=== PATIENT | female | born 1975 | race Caucasian/White ===

== ENCOUNTER → 2022-12-13 08:22 | Outpatient (BNVA) | payer SELFPAY | PROVIDERS: PCP Nurse Practitioner; Visit Provider Nurse Practitioner | DX: E11.9 Type 2 diabetes mellitus without complications (principal); Z79.899 Other long term (current) drug therapy | CPT/HCPCS: 80053; 80061; 82306; 83036; 83735; 84443; 85025 ==

== ENCOUNTER → 2023-02-20 09:45 | Outpatient (BNVA) | payer SELFPAY | PROVIDERS: PCP Nurse Practitioner; Visit Provider Nurse Practitioner | DX: R25.2 Cramp and spasm (principal); D25.9 Leiomyoma of uterus, unspecified; M25.512 Pain in left shoulder; M54.9 Dorsalgia, unspecified; G89.29 Other chronic pain; M54.2 Cervicalgia; R91.1 Solitary pulmonary nodule | CPT/HCPCS: 73030; 80053; 83735; 84443 ==

== ENCOUNTER 2023-06-15 10:54 | Emergency (ER) | payer SELFPAY ==
[2023-06-15 11:01] VITALS: BP 123/88; PULSE 114; RESP 18; TEMP 36.7; O2SAT 99; BMI 43.7
--- NOTE | 2023-06-15 11:28 | W.ED.EXTPRO ---
HPI - Extremity Problem General: Chief complaint: Extremity Injury, Upper Stated complaint: left shoulder injury Time Seen by Provider: 06/15/23 10:57 History of Present Illness: Mikala Rodriguez is a 47-year-old [id number] female that presents to the emergency department with complaints of left shoulder pain. Onset of symptoms she reports as a 1 month ago but she has x-rays back in January of the left shoulder. Patient states that she injured the shoulder when she was lifting heavy tree. Patient is neurovascularly intact and has no wounds. Patient has been working with her primary care who is ordered an MR of the cervical spine as well as the left shoulder but patient has not followed through due to financial burden of MR imaging. Patient's history includes diabetes, hypertension, cardiovascular disease, chronic kidney disease Associated symptoms: Deny chest pain, fever(s) or rash Review of Systems General: Reports: 10 or more systems reviewed and unremarkable except in HPI and below Const: Denies: fever(s), chills, change in appetite, change in weight, fatigue or malaise Eyes: Denies: change in vision, eye discomfort, eye discharge or eye redness ENMT: Denies: throat pain, enlarged tonsils, odynophagia, hoarseness, ear or mastoid pain, ear discharge, change in hearing, tinnitus, nasal discharge, nasal congestion, post nasal drip or sinus pain Card: Denies: chest pain, palpitations, irregular heart rhythm, edema, dyspnea on exertion, orthopnea or leg pain with exertion Resp: Denies: dyspnea, productive cough, non-productive cough, wheezing, stridor or chest congestion GI: Denies: abdominal pain, nausea, vomiting, dysphagia, diarrhea, constipation, bloating, GI cramping or hematochezia : Denies: flank pain, difficulty voiding, dysuria, urinary frequency, urinary urgency, urinary hesitancy, oliguria or hematuria Musc: Denies: neck pain, back pain, extremity pain, joint pain, joint swelling, joint redness, joint warmth or muscle weakness Skin/Breast: Denies: rash, pruritus, erythema, photosensitivity or new lesions Neuro: Denies: headache(s), numbness in extremities, weakness in extremities, sensory changes, lack of coordination, difficulty walking, frequent falls, dizziness, confusion, Slurred speech present, difficulty communicating thoughts, seizure-like activity or involuntary movements Endo: Denies: polyuria, polydipsia or tired all the time Sidney/Lymph: Denies: easy bruising or easy bleeding Physical Exam Const: COMMON NORMALS: no acute distress, patient oriented x3 and alert GENERAL APPEARANCE: cooperative ORIENTATION/CONSCIOUSNESS: Yes awake, Yes oriented to person, Yes oriented to place and Yes oriented to time HENMT: COMMON NORMALS: normocephalic and atraumatic HEAD & SCALP: normocephalic and atraumatic FACE & SINUS: normal facial exam MOUTH: Normal oral and palatal mucosa present THROAT: posterior oropharynx normal Eye: COMMON NORMALS: Equal, round and reactive pupils present, EOMs intact bilaterally, conjunctivae normal and no scleral icterus GENERAL EYE: appearance normal, both eyes and all related structures ALIGNMENT: Yes alignment normal PERIORBITAL: periorbital findings normal CONJUNCTIVA: Yes conjunctivae normal PUPIL: Yes Equal, round and reactive pupils present Neck/C-Spine: COMMON NORMALS: full ROM GENERAL: Yes normal visual inspection Lymph: LYMPHATIC: no lymphadenopathy noted Chest: COMMONS NORMALS: normal inspection of the chest Breast/axilla inspection: Yes no chest deformity, asymmetry, normal contours, no nodules, masses, tenderness Resp: COMMON NORMALS: normal respiratory effort, No retractions, No use of accessory muscles and clear to auscultation bilaterally EFFORT & INSPECTION: Yes able to speak in complete sentences and Yes symmetric chest movement AUSCULTATION: clear to auscultation bilaterally Cardio: COMMON NORMALS: regular rate, regular rhythm and Peripheral pulses 2+ throughout RATE: regular rate RHYTHM: regular rhythm PERIPHERAL PULSES: Peripheral pulses 2+ throughout GI: COMMON NORMALS: Normal to inspection, nondistended, normoactive bowel sounds present, Soft to palpation, non-tender and No hepatosplenomegaly present INSPECTION: Yes normal to inspection AUSCULTATION: Yes normoactive bowel sounds PALPATION: Yes Soft to palpation and Yes No hepatosplenomegaly present RECTAL EXAM: deferred Extremity: COMMON NORMALS: normal to inspection NARRATIVE EXTREMITY EXAM: Left upper extremity: Skin is clean dry intact Tenderness to palpation over the left trapezius, anterior and posterior shoulder, deltoid. Patient reports pain radiates into the bicep and deltoid and intermittently into the tricep. Patient has limited range of motion of her shoulder due to pain She has about 90 degrees of forward flexion, 15 degrees of external rotation, 15 degrees of abduction, and refuses internal rotation exam Patient has full active elbow range of motion She is able to extend her wrist She is able to give a thumbs up, make an okay sign, cross fingers, abduct fingers and make a fist Sensations intact light touch at axillary, radial, median, ulnar nerve distribution Radial pulses palpable and cap refills less than 3 seconds Neuro: COMMON NORMALS: patient oriented x3 SENSORIUM/ORIENTATION: Yes alert, Yes oriented to person, Yes oriented to place and Yes oriented to time CRANIAL NERVES: Yes CN normal except as noted Psych: COMMON NORMALS: mental status grossly normal, Normal thought process present, cooperative, activity/motor behavior normal, denies homicidal ideation and denies suicidal ideation THOUGHT PROCESS: Normal thought process present Skin: COMMON NORMALS: no rashes or lesions noted, no wounds and turgor normal GENERAL SKIN EXAM: no rashes or lesions noted and turgor normal Course Vital Signs: Vital signs: Vital Signs Temperature 98.1 F 06/15/23 11:01 Pulse Rate 114 H 06/15/23 11:01 Respiratory Rate 18 06/15/23 11:01 Blood Pressure 123/88 06/15/23 11:01 Pulse Oximetry 99 06/15/23 11:01 Oxygen Delivery Me thod Room Air 06/15/23 11:01 MDM - Extremity (Nontraumatic) Medical Decision Making Patient is in the emergency department for complaints of left shoulder pain. She has undergone XR imaging earlier in the summer and has been evaluated by primary care. There is been referral to an orthopedic surgeon but she does not have an appointment until July. Patient states she has undergone further diagnostic evaluation up in [place] but we do not have those images. She has seen her primary care and MR imaging of the cervical spine and left shoulder have been ordered but patient has failed to complete due to the financial burden. Patient has been taking naproxen and has a prescription for Celebrex. She states that medications he is taking offer her no relief. She states her pain is only with movement She has trialed Flexeril as well that does not offer any pain relief. Patient and I talked about diagnostic evaluation here in the emergency department. I am able to get a CT or XR but really she needs an MRI. She has declined CT and XR at this time. Offered her pain relief which included nonsteroidal anti-inflammatories and steroids. Initially patient was declining either but agreed to Norflex and Decadron. Patient was given contact information for a walk-in orthopedic clinic. Also given her case management Referral for orthopedic referral. No radiology studies performed this visit Discharge Plan Discharge Patient Disposition: Home Clinical Impression: Left shoulder pain Condition: Stable Prescriptions: New tizanidine 4 mg capsule 4 mg PO Q8H PRN (Reason: muscle spasticity) Qty: 20 0RF No Action amlodipine 5 mg tablet 5 mg PO DAILY Qty: 90 1RF celecoxib [Celebrex] 200 mg capsule 200 mg PO BID Qty: 60 6RF diclofenac sodium [Voltaren Arthritis Pain] 1 % gel 2 g topical QID Qty: 100 3RF Rx Instructions: apply to area of pain lidocaine [Aspercreme (lidocaine)] 4 % adhesive patch,medicated 1 patch topical DAILY PRN (Reason: pain) Qty: 30 3RF estradiol 1 mg tablet 1 mg PO DAILY Rx Instructions: off 1 week; repeat cycle medroxyprogesterone [Provera] 2.5 mg tablet 2.5 mg PO DAILY Novolin 70-30 FlexPen U-100 100 unit/mL (70-30) insulin pen 20 unit SUBCUT BID cholecalciferol (vitamin D3) 1,250 mcg (50,000 unit) capsule PO vitamin B complex [B Complex-Vitamin B12] Tablet 1 tab PO DAILY furosemide [Lasix] 40 mg tablet 40 mg PO DAILY Qty: 90 1RF gabapentin 400 mg capsule 400 mg PO .every 6 hours Qty: 360 1RF losartan-hydrochlorothiazide 100-12.5 mg tablet 1 tab PO DAILY Qty: 90 1RF metoprolol succinate 50 mg tablet extended release 24 hr 50 mg PO DAILY Qty: 90 1RF omeprazole 20 mg capsule,delayed release(DR/EC) 20 mg PO DAILY Qty: 90 1RF albuterol sulfate 90 mcg/actuation HFA aerosol inhaler 2 puff inhalation Q4H PRN (Reason: shortness of breath or wheezing) Qty: 8.5 3RF nitrofurantoin monohyd/m-cryst [Macrobid] 100 mg capsule 100 mg PO Q12H 5 Days Qty: 10 0RF Rx Instructions: must administer with a meal/food potassium chloride 20 mEq tablet,ER particles/crystals 20 meq PO DAILY Qty: 90 1RF hydroxyzine HCl 25 mg tablet See Rx Instructions .ROUTE .COMPLEX Qty: 30 0RF Dose Instruction: TAKE 1 TABLET BY MOUTH AT BEDTIME NEEDED FOR INSOMNIA Rx Instructions: TAKE 1 TABLET BY MOUTH AT BEDTIME NEEDED FOR INSOMNIA escitalopram oxalate 10 mg tablet See Rx Instructions .ROUTE .COMPLEX Qty: 30 0RF Dose Instruction: Take 1 tablet by mouth once daily Rx Instructions: Take 1 tablet by mouth once daily atorvastatin 40 mg tablet 40 mg PO DAILY Qty: 90 1RF metformin 500 mg tablet 1,000 mg PO BID 90 Days Qty: 360 1RF tramadol 50 mg tablet 50 mg PO TID PRN (Reason: pain) Qty: 30 3RF cyclobenzaprine 10 mg tablet 10 mg PO DAILY PRN (Reason: muscle spasm) Qty: 30 3RF Discharge Orders: Discharge ED (Routine); Ordered 06/15/23 Ordered By: Julio Suh Discharge Diet: Advance as tolerated Discharge Activity: Resume usual activity Patient Instructions: Shoulder Pain (ED), Pain Management Activity Restrictions/Additional Instructions: Tylenol with arthritis, ice, gentle range of motion if possible Muscle relaxers for the muscle spasms. Follow-up with your primary care doctor. I have sent a referral for orthopedic follow-up. If you so desire you can follow-up with the walk-in clinic. Dr. Hamilton was is a sports medicine doctor in [place]. His address is [address] [place] [address] on the second floor. His phone number is [phone]. You can walk-in without appointment typically Friday through Friday. Call the office to confirm hours of walk-in availability. Please return to the emergency department for new concerning or worsening symptoms Coding Level of Care Code ED Scientific Photographer for Stanton Batista
[2023-06-15] MEDS: dexamethasone 10 mg/mL INJ IM (11:30)
[2023-06-15] MEDS: orphenadrine 30 mg/mL Inj 2 mL 60 MG IM (11:31)
== END 2023-06-15 11:50 | disposition home or self-care (01) ==
PROVIDERS: Emergency Provider Nurse Practitioner
DX: M25.512 Pain in left shoulder (principal); Z79.84 Long term (current) use of oral hypoglycemic drugs; Z79.4 Long term (current) use of insulin
CPT/HCPCS: 96372; 99284; J1100; J2360

== ENCOUNTER → 2023-11-11 10:41 | Outpatient (BNVA) | payer SELFPAY | PROVIDERS: PCP Nurse Practitioner Family; Visit Provider Nurse Practitioner Family | DX: S92.352A Displaced fracture of fifth metatarsal bone, left foot, initial encounter for closed fracture (principal); S93.402A Sprain of unspecified ligament of left ankle, initial encounter; X58.XXXA Exposure to other specified factors, initial encounter | CPT/HCPCS: 73610; 73630 ==

== ENCOUNTER 2023-12-09 14:58 | Observation (INO) | payer SELFPAY ==
[2023-12-09] VITALS (14 sets, daily range): BP systolic 108–153; BP diastolic 69–94; PULSE 88–108; RESP 16–22; TEMP 36.7–37.1; O2SAT 92–97; BMI 42.9
--- NOTE | 2023-12-09 15:00 | XRR_ITS ---
PROCEDURE INFORMATION: Exam: XR Chest Exam date and time: 12/09/2023 3:24 PM Age: 48 years old Clinical indication: Shortness of breath; Additional info: SOB TECHNIQUE: Imaging protocol: Radiologic exam of the chest. Views: 1 view. COMPARISON: CR XR shoulder LT min 2V* [id number] 02/20/2023 10:42 AM FINDINGS: Lungs: Unremarkable. No consolidation. Pleural spaces: Unremarkable. No pleural effusion. No pneumothorax. Heart/Mediastinum: Unremarkable. No cardiomegaly. Bones/joints: Unremarkable. XR/XR chest 1V portable [id number] IMPRESSION: No acute findings.
--- NOTE | 2023-12-09 15:00 | ECG_ITS ---
[facility] Test Date: 2023-12-09 Pat Name: Elysia Rodriguez Department: Room: Gender: Female Banking Specialist: : 1975 Requested By: Dillan Paez Order Number: [id number] Rudy MD: John Ingram M.D. Measurements Intervals [place] Rate: 101 P: 53 [place]: 179 QRS: -2 QRSD: 83 T: 47 QT: 345 QTc: 449 Interpretive Statements SINUS TACHYCARDIA POSSIBLE LEFT ATRIAL ENLARGEMENT [-0.1mV P-WAVE IN V1/V2] ABNORMAL RHYTHM ECG No previous ECG available for comparison Electronically Signed On 12-09-2023 21:23:36 CDT by John Ingram M.D. [id number]
--- NOTE | 2023-12-09 15:29 | ED_ITS ---
HPI - General Adult 2 General: Chief complaint: General Medical Stated complaint: yara, abnormal labs, sob Time Seen by Provider: 12/09/23 15:22 Source: patient Mode of arrival: ambulatory Limitations: no limitations History of Present Illness: 48-year-old female who states that she i s exposed to flu a week ago states since then she has been having cough congestion fever states it has been worsening send her PCP did start her on steroids yesterday and now her blood sugars have been running high. She denies any vomiting or diarrhea. She states that her cough is nonproductive but anytime she lays down she feels like she is drowning she also had severe wheezing and has used albuterol at home with minimal improvement Associated symptoms: Reports dyspnea; Deny chest pain, headache(s), nausea, rash or vomiting Review of Systems 2 Const: Reports: fever(s) and chills; Denies: body aches or change in appetite ENMT: Denies: throat pain or dental pain Card: Denies: chest pain Resp: Reports: dyspnea and productive cough GI: Denies: abdominal pain, nausea, vomiting or diarrhea Musc: Denies: neck pain or back pain Skin/Breast: Denies: rash Neuro: Denies: headache(s) PFSH ED 2 PFSH: Medical History Ankle sprain Fracture of 5th metatarsal Lesion of thyroid gland Lung nodule seen on imaging study Severe shoulder pain Chronic pain Physical Exam 2 Const: COMMON NORMALS: no acute distress, patient oriented x3 and healthy appearing HENMT: COMMON NORMALS: normocephalic and atraumatic HEAD & SCALP: n ormocephalic and atraumatic Neck/C-Spine: COMMON NORMALS: full ROM and supple Chest: COMMONS NORMALS: normal inspection of the chest Resp: EFFORT & INSPECTION: Yes respiratory distress AUSCULTATION: rhonchi and wheezes Cardio: COMMON NORMALS: regular rate, regular rhythm and No murmurs present (Cardio) RATE: regular rate RHYTHM: regular rhythm GI: COMMON NORMALS: non-tender Extremity: COMMON NORMALS: normal to inspection and full ROM Neuro: COMMON NORMALS: patient oriented x3, moves all extremities and no focal motor deficits Psych: COMMON NORMALS: mental status grossly normal, Normal thought process present and cooperative THOUGHT PROCESS: Normal thought process present Skin: COMMON NORMALS: no rashes or lesions noted and no wounds GENERAL SKIN EXAM: no rashes or lesions noted Course 2 Vital Signs: Vital signs: Vital Signs Temperature 98.4 F 12/09/23 15:16 Pulse Rate 99 12/09/23 16:26 Respiratory Rate 20 H 12/09/23 16:12 Blood Pressure 128/75 12/09/23 15:16 Pulse Oximetry 94 12/09/23 16:12 Oxygen Delivery Me thod Room Air 12/09/23 16:12 MDM - General Adult Medical Decision Making Patient presents here with a COPD exacerbation she is continue to have wheezing here after breathing treatment states she does not feel any better she is not hypoxic x-ray shows no pneumonia but she does have a audible wheezing will admit for observation for COPD. Medical Records I reviewed the patient's medical records. Lab Data I reviewed the patient's lab results. 12/09/23 15:30 12/09/23 15:30 Radiology Impressions Chest X-Ray 12/09/23 15:00 IMPRESSION: No acute findings. Laboratory Results WBC 15.03 10^3/uL (3.29-11.43) H 12/09/23 15:30 RBC 4.46 10^6/uL (3.85-5.65) 12/09/23 15:30 Hgb 12.20 g/dL (11.27-16.99) 12/09/23 15:30 Hct 37.9 % (36-47) 12/09/23 15:30 MCV 85.0 fl (85-98) 12/09/23 15:30 MCH 27.4 pg (27-33) 12/09/23 15:30 MCHC 32.2 g/dL (30-55) 12/09/23 15:30 RDW 14.3 % (12.1-15.1) 12/09/23 15:30 Plt Count 392 10^3/cmm (157-399) 12/09/23 15:30 MPV 10.2 fL (7.4-10.4) 12/09/23 15:30 Neut % (Auto) 86.1 % 12/09/23 15:30 Lymph % (Auto) 11.2 % 12/09/23 15:30 Karnes % (Auto) 1.9 % 12/09/23 15:30 Eos % (Auto) 0.0 % 12/09/23 15:30 Baso % (Auto) 0.1 % 12/09/23 15:30 Neut # (Auto) 12.94 10^3/uL (1.8-7.7) H 12/09/23 15:30 Lymph # (Auto) 1.7 10^3/uL (0.8-4.8) 12/09/23 15:30 Karnes # (Auto) 0.3 10^3/uL (0.2-0.9) 12/09/23 15:30 Eos # (Auto) 0.0 10^3/uL (0.0-0.8) 12/09/23 15:30 Baso # (Auto) 0.0 10^3/uL (0.0-0.1) 12/09/23 15:30 Nucleated RBC % (auto) 0 % 12/09/23 15:30 Nucleated RBCs # 0.0 /100WBC 12/09/23 15:30 Sodium 140 mmol/L (136-145) 12/09/23 15:30 Potassium 3.9 mmol/L (3.5-5.1) 12/09/23 15:30 Chloride 102 mmol/L (98-107) 12/09/23 15:30 Carbon Dioxide 25 mmol/L (22-29) 12/09/23 15:30 Anion Gap 16.9 (5-19) 12/09/23 15:30 BUN 22 mg/dL (6-20) H 12/09/23 15:30 Creatinine 0.7 mg/dL (0.5-0.9) 12/09/23 15:30 GFR Calculation 89.3 mL/min (90-130) L 12/09/23 15:30 Glucose 212 mg/dL (65-115) H 12/09/23 15:30 POC Glucose 222 mg/dL (70-110) H 12/09/23 15:45 Calculated Osmolality 300 mOsm/kg (285-295) H 12/09/23 15:30 Calcium 9.5 mg/dL (8.5-10.5) 12/09/23 15:30 Total Bilirubin 0.4 mg/dL (0.15-1.2) 12/09/23 15:30 AST 14 U/L (0-32) 12/09/23 15:30 ALT 17 U/L (0-33) 12/09/23 15:30 Alkaline Phosphatase 118 U/L (35-105) H 12/09/23 15:30 NT-Pro-B Natriuret Pep 238 pg/mL (0-125) H 12/09/23 15:30 Total Protein 7.5 g/dL (6.6-8.7) 12/09/23 15:30 Albumin 4.4 g/dL (3.5-5.2) 12/09/23 15:30 Globulin 3.1 g/dL (1.3-4.6) 12/09/23 15:30 Influenza Type A Ag negative (Negative) 12/09/23 16:02 Influenza Type B Ag negative (Negative) 12/09/23 16:02 SARS-CoV-2 Ag (Rapid) negative (Negative) 12/09/23 16:02 All radiology interpretation(s) finalized by discharge EKG Data EKG 1: I personally reviewed and interpreted this EKG as follows: EKG interpretation date: 12/09/23 EKG interpretation time: 15:42 Interpretation: sinus tach hr [address] or t wave abnormalities qrs 83 qtc 403 Computer generated interpretation: Chest X-Ray 12/09/23 15:00 IMPRESSION: No acute findings. Discharge Plan Discharge Patient Disposition: Admitted As Inpatient Clinical Impression: Asthma exacerbation in COPD Condition: Stable Prescriptions: No Action celecoxib [Celebrex] 200 mg capsule 200 mg PO BID Qty: 60 6RF diclofenac sodium [Voltaren Arthritis Pain] 1 % gel 2 g topical QID Qty: 100 3RF Rx Instructions: apply to area of pain lidocaine [Aspercreme (lidocaine)] 4 % adhesive patch,medicated 1 patch topical DAILY PRN (Reason: pain) Qty: 30 3RF fluticasone propion-salmeterol [Advair HFA] 115-21 mcg/actuation HFA aerosol inhaler 2 inh inhalation BID Qty: 12 0RF amoxicillin-pot clavulanate 875-125 mg tablet 1 tab PO BID 10 Days Qty: 20 0RF prednisone 20 mg tablet 40 mg PO .Daily in A.M. 5 Days Qty: 10 0RF estradiol 1 mg tablet 1 mg PO DAILY Rx Instructions: off 1 week; repeat cycle medroxyprogesterone [Provera] 2.5 mg tablet 2.5 mg PO DAILY Novolin 70-30 FlexPen U-100 100 unit/mL (70-30) insulin pen 20 unit SUBCUT BID cholecalciferol (vitamin D3) 1,250 mcg (50,000 unit) capsule PO vitamin B complex [B Complex-Vitamin B12] Tablet 1 tab PO DAILY omeprazole 20 mg capsule,delayed release(DR/EC) 20 mg PO DAILY Qty: 90 1RF albuterol sulfate 90 mcg/actuation HFA aerosol inhaler 2 puff inhalation Q4H PRN (Reason: shortness of breath or wheezing) Qty: 8.5 3RF amlodipine 5 mg tablet 5 mg PO DAILY Qty: 90 1RF atorvastatin 40 mg tablet 40 mg PO DAILY Qty: 90 1RF escitalopram oxalate 10 mg tablet See Rx Instructions .ROUTE .COMPLEX 90 Days Qty: 90 1RF Dose Instruction: Take 1 tablet by mouth once daily Rx Instructions: Take 1 tablet by mouth once daily furosemide 40 mg tablet See Rx Instructions .ROUTE .COMPLEX 90 Days Qty: 90 1RF Dose Instruction: Take 1 tablet by mouth once daily Rx Instructions: Take 1 tablet by mouth once daily losartan-hydrochlorothiazide 100-12.5 mg tablet See Rx Instructions .ROUTE .COMPLEX 90 Days Qty: 90 2RF Dose Instruction: Take 1 tablet by mouth once daily Rx Instructions: Take 1 tablet by mouth once daily metformin 500 mg tablet 1,000 mg PO BID 90 Days Qty: 360 1RF potassium chloride 20 mEq tablet,ER particles/crystals 20 meq PO DAILY Qty: 90 1RF tizanidine 4 mg capsule 4 mg PO Q8H PRN (Reason: muscle spasticity) 30 Days Qty: 60 1RF gabapentin 400 mg capsule 400 mg PO .every 6 hours 90 Days Qty: 360 1RF tramadol 50 mg tablet 50 mg PO TID PRN (Reason: pain) Qty: 30 2RF hydroxyzine HCl 25 mg tablet See Rx Instructions .ROUTE .COMPLEX Qty: 30 0RF Dose Instruction: TAKE 1 TABLET BY MOUTH AT BEDTIME NEEDED FOR INSOMNIA Rx Instructions: TAKE 1 TABLET BY MOUTH AT BEDTIME NEEDED FOR INSOMNIA metoprolol succinate 50 mg tablet extended release 24 hr See Rx Instructions .ROUTE .COMPLEX Qty: 90 0RF Dose Instruction: Take 1 tablet by mouth once daily Rx Instructions: Take 1 tablet by mouth once daily promethazine-DM 6.25-15 mg/5 mL syrup 5 - 10 ml PO Q6H PRN (Reason: cough) 10 Days Qty: 473 0RF Rx Instructions: Do not take with other antihistamines (Hydroxyzine) Referrals: VICKY Shah, LABORATORY ANIMAL CARE VETERINARIAN [Primary Care Provider] - Coding Level of Care Code ED Stained Glass Installer for Stanton Batista
[2023-12-09 15:48] LABS: Glucose Point of Care 222 mg/dL (70-110)
[2023-12-09 15:59] LABS: Basophils % 0.1 %; Hematocrit 37.9 % (36-47); Lymphocytes # 1.7 10^3/uL (0.8-4.8); Lymphocytes % 11.2 %; Mean Corpuscular HGB Conc 32.2 g/dL (30-55); Mean Corpuscular Hemoglobin 27.4 pg (27-33); Mean Platelet Volume 10.2 fL (7.4-10.4); Monocytes # 0.3 10^3/uL (0.2-0.9); Monocytes % 1.9 %; Neutrophils # 12.94 10^3/uL (1.8-7.7); Neutrophils % 86.1 %; Nucleated Red Blood Cells % 0 %; Platelet Count 392 10^3/cmm (157-399); Red Blood Count 4.46 10^6/uL (3.85-5.65); Red Cell Distribution Width 14.3 % (12.1-15.1); White Blood Count 15.03 10^3/uL (3.29-11.43)
[2023-12-09] MEDS: ipratropium-albuterol 3 mL Neb INHALATION ×2 (16:10→19:55)
[2023-12-09] MEDS: albuterol 2.5 mg/3 mL Neb INHALATION ×2 (16:10→17:23)
[2023-12-09 16:26] LABS: Alanine Aminotransferase 17 U/L (0-33); Albumin Level 4.4 g/dL (3.5-5.2); Alkaline Phosphatase 118 U/L (35-105); Anion Gap 16.9 (5-19); Aspartate Amino Transferase 14 U/L (0-32); Blood Urea Nitrogen 22 mg/dL (6-20); Calcium 9.5 mg/dL (8.5-10.5); Carbon Dioxide 25 mmol/L (22-29); Chloride 102 mmol/L (98-107); Creatinine Clr Calc Pharmacy 121.3019; Globulin 3.1 g/dL (1.3-4.6); Glomerular Filtration Rate 89.3 mL/min (90-130); Glucose 212 mg/dL (65-115); NT Pro B Type Natriuretic Pept 238 pg/mL (0-125); Osmolality Calculated 300 mOsm/kg (285-295); Potassium 3.9 mmol/L (3.5-5.1); Sodium 140 mmol/L (136-145); Total Bilirubin 0.4 mg/dL (0.15-1.2); Total Protein 7.5 g/dL (6.6-8.7)
[2023-12-09 16:31] LABS: Influenza A by IFA negative (Negative); Influenza B by IFA negative (Negative); SARS Covid-2 Antigen negative (Negative)
[2023-12-09] MEDS: methylPREDNISolone sod succ 125 mg/2 mL INJ IVP (16:56)
--- NOTE | 2023-12-09 17:20 | PM.HP ---
Providers/Chief Complaint Primary Care Provider: INTHIN Powell Chief Complaint: dr livingston, abnormal labs, sob History of Present Illness Elysia Rodriguez is a 48 year old female with history of type 2 diabetes mellitus hypertension hyperlipidemia peripheral neuropathy COPD active smoker, sleep apnea on supplemental oxygen 3 L via nasal cannula at night presented with complaint of flulike symptoms for 10 days with worsening shortness of breath. History of sick contact in the family present. She reports using albuterol inhaler more often since last 10 days, but with no relief. She visited her PCP as outpatient but was managed conservatively. She has a history of fever cold cough and shortness of breath. Denies any nausea vomiting diarrhea chest pain dizziness. In ER she received DuoNeb x 2 IV Solu-Medrol 125 mg once but but had minimal improvement. Review of Systems General: Reports: 10 or more systems reviewed and unremarkable except in HPI and below Medications/Allergies Home Medications Medication Instructions Recorded Confirmed Last Taken Type cholecalciferol (vitamin D3) 1,250 PO 12/13/22 12/08/23 Unknown History mcg (50,000 unit) capsule estradiol 1 mg tablet 1 mg PO DAILY 12/13/22 12/08/23 Unknown History insulin NPH-regular 70-30 U-100 20 unit SUBCUT BID 12/13/22 12/08/23 Unknown History insulin 100 unit/mL subcutaneous pen (Novolin 70-30 FlexPen U-100 Insulin) medroxyprogesterone 2.5 mg tablet 2.5 mg PO DAILY 12/13/22 12/08/23 Unknown History (Provera) omeprazole 20 mg capsule,delayed 20 mg PO DAILY #90 caps 12/13/22 12/08/23 Unknown Rx release vitamin B complex (B 1 tab PO DAILY 12/13/22 12/08/23 Unknown History Complex-Vitamin B12 tablet) hydroxyzine HCl 25 mg tablet See Rx Instructions .Route 03/24/23 12/08/23 Unknown Rx .COMPLEX #30 tabs celecoxib 200 mg capsule (Celebrex) 200 mg PO BID #60 caps 05/13/23 12/08/23 Unknown Rx diclofenac sodium 1 % topical gel 2 g topical QID #100 grams 05/13/23 12/08/23 Unknown Rx (Voltaren Arthritis Pain) lidocaine 4 % topical patch 1 patch topical DAILY PRN pain #30 05/13/23 12/08/23 Unknown Rx (Aspercreme (lidocaine)) ea metoprolol succinate 50 mg See Rx Instructions .Route 08/26/23 12/08/23 Unknown Rx tablet,extended release 24 hr .COMPLEX #90 tabs albuterol sulfate 90 mcg/actuation 2 puff inhalation Q4H PRN 10/01/23 12/08/23 Unknown Rx aerosol inhaler shortness of breath or wheezing #8.5 grams amlodipine 5 mg tablet 5 mg PO DAILY #90 tabs 10/01/23 12/08/23 Unknown Rx atorvastatin 40 mg tablet 40 mg PO DAILY #90 tabs 10/01/23 12/08/23 Unknown Rx escitalopram oxalate 10 mg tablet See Rx Instructions .Route 10/01/23 12/08/23 Unknown Rx .COMPLEX 90 days #90 tabs furosemide 40 mg tablet See Rx Instructions .Route 10/01/23 12/08/23 Unknown Rx .COMPLEX 90 days #90 tabs gabapentin 400 mg capsule 400 mg PO .every 6 hours 90 days 10/01/23 12/08/23 Unknown Rx #360 caps losartan 100 See Rx Instructions .Route 10/01/23 12/08/23 Unknown Rx mg-hydrochlorothiazide 12.5 mg .COMPLEX 90 days #90 tabs tablet metformin 500 mg tablet 1,000 mg (2 x 500 mg) PO BID 90 10/01/23 12/08/23 Unknown Rx days #360 tabs potassium chloride 20 mEq 20 meq PO DAILY #90 tabs 10/01/23 12/08/23 Unknown Rx tablet,extended release(part/cryst) tizanidine 4 mg capsule 4 mg PO Q8H PRN muscle spasticity 10/01/23 12/08/23 Unknown Rx 30 days #60 caps tramadol 50 mg tablet 50 mg PO TID PRN pain #30 tabs 10/01/23 12/08/23 Unknown Rx amoxicillin 875 mg-potassium 1 tab PO BID 10 days #20 tabs 12/08/23 12/08/23 Unknown Rx clavulanate 125 mg tablet fluticasone propionate 115 2 inh inhalation BID #12 grams 12/08/23 12/08/23 Unknown Rx mcg-salmeterol 21 mcg/actuation HFA inhaler (Advair HFA) prednisone 20 mg tablet 40 mg (2 x 20 mg) PO .Daily in 12/08/23 12/08/23 Unknown Rx A.M. 5 days #10 tabs promethazine-DM 6.25 mg-15 mg/5 mL 5 - 10 ml PO Q6H PRN cough 10 days 12/08/23 12/08/23 Unknown Rx oral syrup #473 mL Allergies Allergy/AdvReac Type Severity Reaction Status Date / Time tetracycline Allergy Intermediate ADR-Vomitin Verified 12/08/23 16:44 g PFSH Acute PFSH: Medical History Ankle sprain Fracture of 5th metatarsal Lesion of thyroid gland Lung nodule seen on imaging study Severe shoulder pain Chronic pain Vitals/I&O/Wt Last Vital Signs Temp 98.4 F 12/09/23 15:16 Pulse 99 12/09/23 16:26 Resp 20 H 12/09/23 16:12 BP 128/75 12/09/23 15:16 Pulse Ox 94 12/09/23 16:12 O2 Del Method Room Air 12/09/23 16:12 Weight last 48 hrs Weight 113.398 kg Physical Exam Narrative: She is alert awake oriented x 3 in mild respiratory distress, but able to speak in full sentences obese Chest bilateral coarse rhonchi and wheezing present Cardiovascular normal heart sounds no murmurs Abdomen soft nontender nondistended normal bowel sounds Extremities no pedal edema noted Data 12/09/23 15:30 12/09/23 15:30 CXR: My impression: Bilateral prominent bronchovascular markings present A&P Assessment and plan (1) COPD with acute exacerbation: Likely secondary to flulike infection Influenza A and B , and COVID negative will start on IV Solu-Medrol 80 mg every 8 hours DuoNebs every 8 hours IV ceftriaxone 1 g daily IV azithromycin 500 mg daily (2) Type 2 diabetes mellitus: Resume home insulin NPH regular 70//30, 20 units twice daily Monitor fingersticks Premeal and bedtime Medium dose correction scale insulin P.o. metformin 1 g twice daily Qualifiers: Diabetes mellitus extermination inspector insulin use: with group home use (3) Hypertension: Resume home medications p.o. amlodipine 5 mg daily losartan/HCTZ 100 mg / 12.5 mg daily Metoprolol 50 mg daily Qualifiers: Hypertension type: primary hypertension Qualified Code(s): I10 - Essential (primary) hypertension (4) Sleep apnea: Continue with supplemental oxygen 3 L via nasal cannula at night Qualifiers: Sleep apnea type: obstructive Qualified Code(s): G47.33 - Obstructive sleep apnea (adult) (pediatric) (5) Hyperlipidemia: Continue p.o. atorvastatin 40 mg daily Qualifiers: Hyperlipidemia type: familial hypercholesterolemia Qualified Code(s): E78.01 - Familial hypercholesterolemia (6) Current smoker: Educated and counseled about smoking cessation. (7) Peripheral neuropathy: Continue p.o. gabapentin 400 mg twice daily Tramadol 50 mg 3 times daily as needed for back pain P.o. tizanidine 4 milligram every 8 hours as needed for back pain Plan GI prophylaxis with IV Pepcid 20 mg every 12 hours DVT prophylaxis with subcutaneous heparin every 8 hours CODE STATUS discussed with the patient, she [facility]*: She needs less than 2 days of continued hospitalization for COPD exacerbation, nonresponsive to outpatient management Will give her IV antibiotics and IV steroids Time Spent in Patient Care: 30 minutes Coding Level of Care Code Acute Code for [facility] Diagnoses COPD with acute exacerbation J44.1 Type 2 diabetes mellitus E11.9 Diabetes mellitus extermination inspector insulin use: with group home use Primary hypertension I10 Hypertension type: primary hypertension Obstructive sleep apnea syndrome G47.33 Sleep apnea type: obstructive Familial hypercholesterolemia E78.01 Hyperlipidemia type: familial hypercholesterolemia Current smoker F17.200 Peripheral neuropathy G62.9 Time Spent (min) 30
[2023-12-09] MEDS: escitalopram 10 mg Tablet PO (18:16)
[2023-12-09] MEDS: CELEcoxib 200 mg Capsule PO (18:16)
[2023-12-09] MEDS: FUROsemide 40 mg Tablet PO (18:16)
[2023-12-09] MEDS: metformin 500 mg Tablet 1000 MG PO (18:17)
[2023-12-09] MEDS: azithromycin 500 MG in sodium chloride 0.9% 250 ML 250 MG IV (18:17)
[2023-12-09] MEDS: cefTRIAXone 1,000 MG in sodium chloride 0.9% (plus) 50 ML 100 MG IV (18:17)
[2023-12-09] MEDS: heparin 5,000 unit/mL INJ 1 mL 5000 UNIT SUBCUT (18:17)
[2023-12-09] MEDS: insulin lispro 100 unit/1 mL SUBCUT ×2 (18:20→20:11)
[2023-12-09 18:21] LABS: Glucose Point of Care 183 mg/dL (70-110)
[2023-12-09] MEDS: tizanidine 4 mg Tablet PO (18:38)
[2023-12-09] MEDS: TRAMadol 50 mg Tablet PO (18:38)
[2023-12-09] MEDS: metoprolol succinate ER (24 HR) 50 mg Tablet PO (18:38)
[2023-12-09] MEDS: famotidine 20 mg/2 mL INJ IVP (18:44)
[2023-12-09] MEDS: diclofenac 1% Topical Gel 100 gm 4 APPLIC TOPICAL (20:10)
[2023-12-09] MEDS: gabapentin 400 mg Capsule PO (20:11)
[2023-12-09 20:14] LABS: Glucose Point of Care 306 mg/dL (70-110)
[2023-12-09] MEDS: zolpidem 5 mg Tablet PO (21:33)
[2023-12-09 23:41] LABS: Glucose Point of Care 193 mg/dL (70-110)
[2023-12-10] VITALS (13 sets, daily range): BP systolic 103–123; BP diastolic 59–74; PULSE 70–90; RESP 16–20; TEMP 36.7–36.9; O2SAT 92–97
[2023-12-10] MEDS: methylPREDNISolone sod succ 125 mg/2 mL INJ 80 MG IVP ×3 (01:00→17:31)
[2023-12-10 05:34] LABS: Basophils % 0.2 %; Hematocrit 35.2 % (36-47); Lymphocytes # 1.5 10^3/uL (0.8-4.8); Lymphocytes % 11.2 %; Mean Corpuscular HGB Conc 33.2 g/dL (30-55); Mean Corpuscular Hemoglobin 27.8 pg (27-33); Mean Corpuscular Volume 83.6 fl (85-98); Mean Platelet Volume 10.1 fL (7.4-10.4); Monocytes # 0.1 10^3/uL (0.2-0.9); Monocytes % 0.7 %; Neutrophils # 11.41 10^3/uL (1.8-7.7); Neutrophils % 86.5 %; Nucleated Red Blood Cells % 0 %; Platelet Count 322 10^3/cmm (157-399); Red Blood Count 4.21 10^6/uL (3.85-5.65); Red Cell Distribution Width 14.4 % (12.1-15.1); White Blood Count 13.17 10^3/uL (3.29-11.43)
[2023-12-10 05:46] LABS: Estmated Average Glucose 120; Hemoglobin A1C 5.8 % (4.0-6.0)
[2023-12-10 05:52] LABS: Chol HDL Ratio 2.94 mg/dL (0.0-4.40); Cholesterol 138 mg/dL (0-200); HDL Cholesterol 47 mg/dL (60-100); LDL Cholesterol Calculated 75 mg/dL (50-129); Triglycerides 82 mg/dL (0-150)
[2023-12-10] MEDS: heparin 5,000 unit/mL INJ 1 mL 5000 UNIT SUBCUT ×2 (05:54→17:32)
[2023-12-10 05:57] LABS: Alanine Aminotransferase 14 U/L (0-33); Alkaline Phosphatase 95 U/L (35-105); Anion Gap 14.7 (5-19); Aspartate Amino Transferase 11 U/L (0-32); Blood Urea Nitrogen 23 mg/dL (6-20); Calcium 9.3 mg/dL (8.5-10.5); Carbon Dioxide 24 mmol/L (22-29); Chloride 103 mmol/L (98-107); Creatinine Clr Calc Pharmacy 147.1232; Globulin 2.7 g/dL (1.3-4.6); Glomerular Filtration Rate 106.7 mL/min (90-130); Glucose 225 mg/dL (65-115); Magnesium 1.7 mg/dL (1.7-2.3); Osmolality Calculated 297 mOsm/kg (285-295); Potassium 3.7 mmol/L (3.5-5.1); Sodium 138 mmol/L (136-145); Total Bilirubin 0.3 mg/dL (0.15-1.2); Total Protein 6.7 g/dL (6.6-8.7)
[2023-12-10] MEDS: famotidine 20 mg/2 mL INJ IVP ×2 (06:00→17:32)
[2023-12-10 06:31] LABS: Glucose Point of Care 268 mg/dL (70-110)
[2023-12-10] MEDS: ipratropium-albuterol 3 mL Neb INHALATION ×3 (07:50→20:06)
[2023-12-10] MEDS: atorvastatin 40 mg Tablet PO (08:03)
[2023-12-10] MEDS: amlodipine 5 mg Tablet PO (08:03)
[2023-12-10] MEDS: insulin lispro 100 unit/1 mL SUBCUT ×4 (08:03→21:24)
[2023-12-10] MEDS: gabapentin 400 mg Capsule PO ×3 (08:03→21:24)
[2023-12-10] MEDS: metoprolol succinate ER (24 HR) 50 mg Tablet PO (08:04)
[2023-12-10] MEDS: FUROsemide 40 mg Tablet PO (08:04)
[2023-12-10] MEDS: losartan 50 mg Tablet 100 MG PO (08:04)
[2023-12-10] MEDS: CELEcoxib 200 mg Capsule PO ×2 (08:04→17:32)
[2023-12-10] MEDS: escitalopram 10 mg Tablet PO (08:04)
[2023-12-10] MEDS: potassium chloride ER 20 mEq Tablet PO (08:06)
[2023-12-10] MEDS: metformin 500 mg Tablet 1000 MG PO ×2 (08:18→17:31)
[2023-12-10] MEDS: diclofenac 1% Topical Gel 100 gm 4 APPLIC TOPICAL ×3 (08:18→17:32)
[2023-12-10] MEDS: hydroCHLOROthiazide 25 mg Tablet 12.5 MG PO (08:18)
--- NOTE | 2023-12-10 10:02 | P.PN_ITS ---
Subjective 2 Subjective: Seen this morning at bedside still complaining of severe dry cough and shortness of breath. Was not able to sleep last night because of cough. Denies any chest pain dizziness nausea vomiting or diarrhea. Medications: Reviewed: Yes Vitals/I&O/Wt Last Vital Signs Temp 98.1 F 12/10/23 04:53 Pulse 72 12/10/23 08:00 Resp 19 H 12/10/23 08:00 BP 123/74 12/10/23 08:04 Pulse Ox 93 12/10/23 08:00 O2 Del Method Room Air 12/10/23 08:00 O2 Flow Rate 3 12/09/23 20:00 12/09/23 12/10/23 12/10/23 22:59 06:59 14:59 Intake Total 381.667 / 381.667 240 / 621.667 480 / 480 Balance 381.667 / 381.667 240 / 621.667 480 / 480 Weight last 48 hrs Weight 121.138 kg Weight 113.398 kg Weight 113.398 kg Physical Exam 2 Narrative: She is alert awake oriented x 3 in mild respiratory distress, but able to speak in full sentences obese Chest bilateral coarse rhonchi and wheezing present Cardiovascular normal heart sounds no murmurs Abdomen soft nontender nondistended normal bowel sounds Extremities no pedal edema noted Data 12/10/23 05:19 12/10/23 05:19 A&P Assessment and plan (1) COPD with acute exacerbation: Likely secondary to flulike infection Influenza A and B , and COVID negative will start on IV Solu-Medrol 80 mg every 8 hours DuoNebs every 8 hours IV ceftriaxone 1 g daily IV azithromycin 500 mg daily (2) Type 2 diabetes mellitus: Resume home insulin NPH regular 70//30, increased to 25 units twice daily Monitor fingersticks Premeal and bedtime Medium dose correction scale insulin P.o. metformin 1 g twice daily Qualifiers: Diabetes mellitus technician terminal and repeater insulin use: with technician terminal and repeater use (3) Hypertension: Resume home medications p.o. amlodipine 5 mg daily losartan/HCTZ 100 mg / 12.5 mg daily Metoprolol 50 mg daily Qualifiers: Hypertension type: primary hypertension Qualified Code(s): I10 - Essential (primary) hypertension (4) Sleep apnea: Continue with supplemental oxygen 3 L via nasal cannula at night Qualifiers: Sleep apnea type: obstructive Qualified Code(s): G47.33 - Obstructive sleep apnea (adult) (pediatric) (5) Hyperlipidemia: Continue p.o. atorvastatin 40 mg daily Qualifiers: Hyperlipidemia type: familial hypercholesterolemia Qualified Code(s): E 78.01 - Familial hypercholesterolemia (6) Current smoker: Educated and counseled about smoking cessation. (7) Peripheral neuropathy: Continue p.o. gabapentin 400 mg twice daily Tramadol 50 mg 3 times daily as needed for back pain P.o. tizanidine 4 milligram every 8 hours as needed for back pain Plan GI prophylaxis with IV Pepcid 20 mg every 12 hours DVT prophylaxis with subcutaneous heparin every 8 hours CODE STATUS discussed with the patient, she is full code for now Attestations 2 Medical Necessity Statement*: She needs continued hospitalization less than 2 days for IV antibiotics steroids nebulizer treatment. Improvement since as compared to admission. Time Spent in Patient Care: 20 minutes Coding Level of Care Code Acute Code for [facility] Diagnoses COPD with acute exacerbation J44.1 Type 2 diabetes mellitus E11.9 Diabetes mellitus technician terminal and repeater insulin use: with correction use Primary hypertension I10 Hypertension type: primary hypertension Obstructive sleep apnea syndrome G47.33 Sleep apnea type: obstructive Familial hypercholesterolemia E78.01 Hyperlipidemia type: familial hypercholesterolemia Current smoker F17.200 Peripheral neuropathy G62.9 Time Spent (min) 20
[2023-12-10] MEDS: TRAMadol 50 mg Tablet PO (10:19)
[2023-12-10 11:30] LABS: Glucose Point of Care 223 mg/dL (70-110)
--- NOTE | 2023-12-10 12:04 | PC.NURSE ---
Patient stated she was in a significant amount of pain this morning. Given PRN tramadol by YASSINE Root. Patient still in pain as of 1200. Physician notified and given order for one time dose percocet 5/325. This nurse was given a pop up for duplicate therapy with tramadol. Physician notified and okayed to override.
[2023-12-10] MEDS: oxyCODONE-APAP 5-325 mg Tablet 1 TAB PO (12:10)
[2023-12-10 17:21] LABS: Glucose Point of Care 225 mg/dL (70-110)
[2023-12-10] MEDS: cefTRIAXone 1,000 MG in sodium chloride 0.9% (plus) 50 ML 100 MG IV (17:40)
[2023-12-10] MEDS: azithromycin 500 MG in sodium chloride 0.9% 250 ML 250 MG IV (18:19)
[2023-12-10 20:33] LABS: Glucose Point of Care 277 mg/dL (70-110)
[2023-12-11] VITALS: BP 118/70; PULSE 78; RESP 20; TEMP 36.4; O2SAT 96
[2023-12-11] MEDS: methylPREDNISolone sod succ 125 mg/2 mL INJ 80 MG IVP ×2 (00:49→09:31)
[2023-12-11 04:00] VITALS: BP 123/74; PULSE 73; RESP 20; TEMP 36.4; O2SAT 93
[2023-12-11 04:52] VITALS: BMI 45.7
[2023-12-11 05:50] LABS: Basophils % 0.1 %; Hematocrit 36.2 % (36-47); Lymphocytes # 1.5 10^3/uL (0.8-4.8); Mean Corpuscular Hemoglobin 27.2 pg (27-33); Mean Platelet Volume 10.5 fL (7.4-10.4); Monocytes # 0.3 10^3/uL (0.2-0.9); Neutrophils # 13.19 10^3/uL (1.8-7.7); Neutrophils % 86.8 %; Nucleated Red Blood Cells % 0 %; Platelet Count 362 10^3/cmm (157-399); Red Blood Count 4.26 10^6/uL (3.85-5.65); Red Cell Distribution Width 14.4 % (12.1-15.1); White Blood Count 15.17 10^3/uL (3.29-11.43)
[2023-12-11 06:00] VITALS: PULSE 62
[2023-12-11] MEDS: famotidine 20 mg/2 mL INJ IVP (06:15)
[2023-12-11] MEDS: heparin 5,000 unit/mL INJ 1 mL 5000 UNIT SUBCUT (06:15)
[2023-12-11 06:25] LABS: Glucose Point of Care 251 mg/dL (70-110)
[2023-12-11 07:50] VITALS: PULSE 72; RESP 18; O2SAT 95
[2023-12-11] MEDS: ipratropium-albuterol 3 mL Neb INHALATION (07:50)
[2023-12-11 09:02] VITALS: BP 123/74
[2023-12-11] MEDS: metformin 500 mg Tablet 1000 MG PO (09:02)
[2023-12-11] MEDS: hydroCHLOROthiazide 25 mg Tablet 12.5 MG PO (09:02)
[2023-12-11] MEDS: metoprolol succinate ER (24 HR) 50 mg Tablet PO (09:02)
[2023-12-11] MEDS: losartan 50 mg Tablet 100 MG PO (09:02)
[2023-12-11] MEDS: gabapentin 400 mg Capsule PO (09:02)
[2023-12-11] MEDS: escitalopram 10 mg Tablet PO (09:03)
[2023-12-11] MEDS: CELEcoxib 200 mg Capsule PO (09:03)
[2023-12-11] MEDS: potassium chloride ER 20 mEq Tablet PO (09:03)
[2023-12-11] MEDS: FUROsemide 40 mg Tablet PO (09:03)
[2023-12-11] MEDS: insulin lispro 100 unit/1 mL SUBCUT ×2 (09:03→12:16)
[2023-12-11] MEDS: atorvastatin 40 mg Tablet PO (09:03)
[2023-12-11] MEDS: amlodipine 5 mg Tablet PO (09:03)
[2023-12-11] MEDS: cefTRIAXone 1,000 MG in sodium chloride 0.9% (plus) 50 ML 100 MG IV (09:08)
[2023-12-11 11:46] VITALS: BP 104/66; PULSE 73; RESP 16; TEMP 36.4; O2SAT 94
[2023-12-11 11:53] LABS: Glucose Point of Care 346 mg/dL (70-110)
--- NOTE | 2023-12-11 12:07 | PM.DCS ---
Discharge Providers Date of Admission: 12/09/23 17:46 Date of Discharge: December 11, 2023 Attending Provider at Admission: Michelle Collins MD Attending Provider at Discharge: Michelle Collins MD Primary Care Provider: NITHIN Powell Diagnoses at Discharge Discharge Diagnosis (1) COPD with acute exacerbation: Status: Acute (2) Type 2 diabetes mellitus: Status: Acute Qualifiers: Diabetes mellitus terminal clerk insulin use: with care home use (3) Hypertension: Status: Acute Qualifiers: Hypertension type: primary hypertension Qualified Code(s): I10 - Essential (primary) hypertension (4) Sleep apnea: Status: Acute Qualifiers: Sleep apnea type: obstructive Qualified Code(s): G47.33 - Obstructive sleep apnea (adult) (pediatric) (5) Hyperlipidemia: Status: Acute Qualifiers: Hyperlipidemia type: familial hypercholesterolemia Qualified Code(s): E78.01 - Familial hypercholesterolemia (6) Current smoker: Status: Acute (7) Peripheral neuropathy: Status: Acute Reason for Visit Reason for Visit: dr livingston, abnormal labs, sob Brief History: Elysia Rodriguez is a 48 year old female with history of type 2 diabetes mellitus hypertension hyperlipidemia peripheral neuropathy COPD active smoker, sleep apnea on supplemental oxygen 3 L via nasal cannula at night presented with complaint of flulike symptoms for 10 days with worsening shortness of breath. History of sick contact in the family present. She reports using albuterol inhaler more often since last 10 days, but with no relief. She visited her PCP as outpatient but was managed conservatively. She has a history of fever cold cough and shortness of breath. Denies any nausea vomiting diarrhea chest pain dizziness. Hospital Course Hospital Course She was diagnosed with COPD exacerbation secondary to flu like infection. Influenza A and B , and COVID were negative started on IV Solu-Medrol 80 mg every 8 hours DuoNebs every 8 hours IV ceftriaxone 1 g daily IV azithromycin 500 mg daily (2) Type 2 diabetes mellitus: Resume home insulin NPH regular 70//30, increased to 25 units twice daily and other home medications. She is feeling better, cough improved, was able to sleep through the nght. will discharge her home today with z-carrington, medrol carrington and duonebs and follow up with PCP in 1 week. Physical Exam Narrative: She is alert awake oriented x 3 in mild respiratory distress, but able to speak in full sentences obese Chest clear to ascultation B/L Cardiovascular normal heart sounds no murmurs Abdomen soft nontender nondistended normal bowel sounds Extremities no pedal edema noted Discharge Data Studies Completed and Pending Completed Studies During Hospitalization Category Date Time Status XR chest 1V portable [id number] Stat Exams 12/09/23 15:00 Completed Radiology Impressions Chest X-Ray 12/09/23 15:00 IMPRESSION: No acute findings. Laboratory Results WBC 15.17 10^3/uL (3.29-11.43) H 12/11/23 05:42 RBC 4.26 10^6/uL (3.85-5.65) 12/11/23 05:42 Hgb 11.60 g/dL (11.27-16.99) 12/11/23 05:42 Hct 36.2 % (36-47) 12/11/23 05:42 MCV 85.0 fl (85-98) 12/11/23 05:42 MCH 27.2 pg (27-33) 12/11/23 05:42 MCHC 32.0 g/dL (30-55) 12/11/23 05:42 RDW 14.4 % (12.1-15.1) 12/11/23 05:42 Plt Count 362 10^3/cmm (157-399) 12/11/23 05:42 MPV 10.5 fL (7.4-10.4) H 12/11/23 05:42 Neut % (Auto) 86.8 % 12/11/23 05:42 Lymph % (Auto) 10.0 % 12/11/23 05:42 [place] % (Auto) 2.0 % 12/11/23 05:42 Eos % (Auto) 0.0 % 12/11/23 05:42 Baso % (Auto) 0.1 % 12/11/23 05:42 Neut # (Auto) 13.19 10^3/uL (1.8-7.7) H 12/11/23 05:42 Lymph # (Auto) 1.5 10^3/uL (0.8-4.8) 12/11/23 05:42 [place] # (Auto) 0.3 10^3/uL (0.2-0.9) 12/11/23 05:42 Eos # (Auto) 0.0 10^3/uL (0.0-0.8) 12/11/23 05:42 Baso # (Auto) 0.0 10^3/uL (0.0-0.1) 12/11/23 05:42 Nucleated RBC % (auto) 0 % 12/11/23 05:42 Nucleated RBCs # 0.0 /100WBC 12/11/23 05:42 Sodium 138 mmol/L (136-145) 12/10/23 05:19 Potassium 3.7 mmol/L (3.5-5.1) 12/10/23 05:19 Chloride 103 mmol/L (98-107) 12/10/23 05:19 Carbon Dioxide 24 mmol/L (22-29) 12/10/23 05:19 Anion Gap 14.7 (5-19) 12/10/23 05:19 BUN 23 mg/dL (6-20) H 12/10/23 05:19 Creatinine 0.6 mg/dL (0.5-0.9) 12/10/23 05:19 GFR Calculation 106.7 mL/min (90-130) 12/10/23 05:19 Glucose 225 mg/dL (65-115) H 12/10/23 05:19 POC Glucose 346 mg/dL (70-110) H 12/11/23 11:36 Estimat Average Glucose 120 12/10/23 05:19 Hemoglobin A1c 5.8 % (4.0-6.0) 12/10/23 05:19 Calculated Osmolality 297 mOsm/kg (285-295) H 12/10/23 05:19 Calcium 9.3 mg/dL (8.5-10.5) 12/10/23 05:19 Magnesium 1.7 mg/dL (1.7-2.3) 12/10/23 05:19 Total Bilirubin 0.3 mg/dL (0.15-1.2) 12/10/23 05:19 AST 11 U/L (0-32) 12/10/23 05:19 ALT 14 U/L (0-33) 12/10/23 05:19 Alkaline Phosphatase 95 U/L (35-105) 12/10/23 05:19 NT-Pro-B Natriuret Pep 238 pg/mL (0-125) H 12/09/23 15:30 Total Protein 6.7 g/dL (6.6-8.7) 12/10/23 05:19 Albumin 4.0 g/dL (3.5-5.2) 12/10/23 05:19 Globulin 2.7 g/dL (1.3-4.6) 12/10/23 05:19 Triglycerides 82 mg/dL (0-150) 12/10/23 05:19 Cholesterol 138 mg/dL (0-200) 12/10/23 05:19 LDL Cholesterol, Calc 75 mg/dL (50-129) 12/10/23 05:19 HDL Cholesterol 47 mg/dL (60-100) L 12/10/23 05:19 LDL/HDL Ratio 1.60 RATIO (0.00-3.22) 12/10/23 05:19 Cholesterol/HDL Ratio 2.94 mg/dL (0.0-4.40) 12/10/23 05:19 Influenza Type A Ag negative (Negative) 12/09/23 16:02 Influenza Type B Ag negative (Negative) 12/09/23 16:02 SARS-CoV-2 Ag (Rapid) negative (Negative) 12/09/23 16:02 Vitals Last Vital Signs Temp 97.6 F 12/11/23 11:46 Pulse 73 12/11/23 11:46 Resp 16 12/11/23 11:46 BP 104/66 12/11/23 11:46 Pulse Ox 94 12/11/23 11:46 O2 Del Method Room Air 12/11/23 11:46 O2 Flow Rate 3 12/09/23 20:00 FiO2 21 12/11/23 07:50 Discharge Plan Discharge Patient Disposition: Home Condition: Stable Prescriptions: New ipratropium-albuterol 0.5 mg-3 mg(2.5 mg base)/3 mL Solution For Nebulization 3 ml inhalation 2XD 5 Days Qty: 0.5 0RF Medrol (Carrington) 4 mg tablets,dose pack See Rx Instructions .ROUTE .COMPLEX Qty: 21 0RF Rx Instructions: orally per package directions Zithromax TRI-CARRINGTON 500 mg tablet See Rx Instructions .ROUTE .COMPLEX Qty: 3 0RF Rx Instructions: For 250 mg dose pack: take 500 mg today (day 1), then 250 mg for 4 days (days 2-5) Continued celecoxib [Celebrex] 200 mg capsule 200 mg PO BID Qty: 60 6RF diclofenac sodium [Voltaren Arthritis Pain] 1 % gel 2 g topical QID Qty: 100 3RF Rx Instructions: apply to area of pain lidocaine [Aspercreme (lidocaine)] 4 % adhesive patch,medicated 1 patch topical DAILY PRN (Reason: pain) Qty: 30 3RF fluticasone propion-salmeterol [Advair HFA] 115-21 mcg/actuation HFA aerosol inhaler 2 inh inhalation BID Qty: 12 0RF estradiol 1 mg tablet 1 mg PO DAILY Rx Instructions: off 1 week; repeat cycle medroxyprogesterone [Provera] 2.5 mg tablet 2.5 mg PO DAILY cholecalciferol (vitamin D3) 1,250 mcg (50,000 unit) capsule 1,250 mcg PO DAILY vitamin B complex [B Complex-Vitamin B12] Tablet 1 tab PO DAILY omeprazole 20 mg capsule,delayed release(DR/EC) 20 mg PO DAILY Qty: 90 1RF albuterol sulfate 90 mcg/actuation HFA aerosol inhaler 2 puff inhalation Q4H PRN (Reason: shortness of breath or wheezing) Qty: 8.5 3RF amlodipine 5 mg tablet 5 mg PO DAILY Qty: 90 1RF atorvastatin 40 mg tablet 40 mg PO DAILY Qty: 90 1RF escitalopram oxalate 10 mg tablet See Rx Instructions .ROUTE .COMPLEX 90 Days Qty: 90 1RF Dose Instruction: Take 1 tablet by mouth once daily Rx Instructions: Take 1 tablet by mouth once daily furosemide 40 mg tablet See Rx Instructions .ROUTE .COMPLEX 90 Days Qty: 90 1RF Dose Instruction: Take 1 tablet by mouth once daily Rx Instructions: Take 1 tablet by mouth once daily losartan-hydrochlorothiazide 100-12.5 mg tablet See Rx Instructions .ROUTE .COMPLEX 90 Days Qty: 90 2RF Dose Instruction: Take 1 tablet by mouth once daily Rx Instructions: Take 1 tablet by mouth once daily metformin 500 mg tablet 1,000 mg PO BID 90 Days Qty: 360 1RF potassium chloride 20 mEq tablet,ER particles/crystals 20 meq PO DAILY Qty: 90 1RF tizanidine 4 mg capsule 4 mg PO Q8H PRN (Reason: muscle spasticity) 30 Days Qty: 60 1RF gabapentin 400 mg capsule 400 mg PO .every 6 hours 90 Days Qty: 360 1RF tramadol 50 mg tablet 50 mg PO TID PRN (Reason: pain) Qty: 30 2RF hydroxyzine HCl 25 mg tablet See Rx Instructions .ROUTE .COMPLEX Qty: 30 0RF Dose Instruction: TAKE 1 TABLET BY MOUTH AT BEDTIME NEEDED FOR INSOMNIA Rx Instructions: TAKE 1 TABLET BY MOUTH AT BEDTIME NEEDED FOR INSOMNIA promethazine-DM 6.25-15 mg/5 mL syrup 5 - 10 ml PO Q6H PRN (Reason: cough) 10 Days Qty: 473 0RF Rx Instructions: Do not take with other antihistamines (Hydroxyzine) metoprolol succinate 50 mg tablet extended release 24 hr 50 mg PO DAILY Discontinued amoxicillin-pot clavulanate 875-125 mg tablet 1 tab PO BID 10 Days Qty: 20 0RF prednisone 20 mg tablet 40 mg PO .Daily in A.M. 5 Days Qty: 10 0RF Novolin 70-30 FlexPen U-100 100 unit/mL (70-30) insulin pen 20 unit SUBCUT BID Discharge Orders: Discharge Order (Routine); Ordered 12/11/23 Ordered By: Michelle Collins Referrals: VICKY Shah, UTILITY SALES AND SERVICE MANAGER [Primary Care Provider] - (We have notified your physician's clinic of the need for a follow-up appointment to be scheduled. If you have not heard from them within the next 2 business days, please call them directly. ) Discharge Diet: Cardiac Discharge Activity: Increase activity as tolerated Patient Instructions: Opioid Safety Activity Restrictions/Additional Instructions: follow up PCP in 1 week Discharge Attestations Time Spent in Discharge Care*: less than 30 min Quality Metrics Clinical Quality Measures [ No reported AMI, CVA or VTE this stay] Coding Level of Care Code Acute Code for [facility] Diagnoses COPD with acute exacerbation J44.1 Type 2 diabetes mellitus E11.9 Diabetes mellitus terminal clerk insulin use: with terminal clerk use Primary hypertension I10 Hypertension type: primary hypertension Obstructive sleep apnea syndrome G47.33 Sleep apnea type: obstructive Familial hypercholesterolemia E78.01 Hyperlipidemia type: familial hypercholesterolemia Current smoker F17.200 Peripheral neuropathy G62.9 Time Spent (min) 25
== END 2023-12-11 13:41 | disposition home or self-care (01) ==
LOC: ER 16:55 → MEDSURG 17:46
PROVIDERS: Admitting Provider Internal Medicine; Emergency Provider Emergency Medicine; PCP Nurse Practitioner Family; Visit Provider Internal Medicine
DX: J44.1 Chronic obstructive pulmonary disease with (acute) exacerbation (principal); E11.42 Type 2 diabetes mellitus with diabetic polyneuropathy; Z79.4 Long term (current) use of insulin; G47.33 Obstructive sleep apnea (adult) (pediatric); E78.01 Familial hypercholesterolemia; F17.200 Nicotine dependence, unspecified, uncomplicated; G62.9 Polyneuropathy, unspecified; Z99.81 Dependence on supplemental oxygen; Z79.84 Long term (current) use of oral hypoglycemic drugs
CPT/HCPCS: 36415; 36416; 71045; 80053; 80061; 82962; 83036; 83735; 83880; 85025; 87426; 87804; 93005; 94640; 94664; 96365; 96372; 96375; 96376; 99285; G0378; J0456; J0696; J1644; J1815; J2919; J3490; J7050; J7613

== ENCOUNTER → 2024-06-18 09:19 | Outpatient (BNVA) | payer SELFPAY | PROVIDERS: PCP Nurse Practitioner Family; Visit Provider Nurse Practitioner Family | DX: D72.829 Elevated white blood cell count, unspecified (principal); R07.9 Chest pain, unspecified; R55 Syncope and collapse; F41.9 Anxiety disorder, unspecified; F32.A Depression, unspecified; E07.9 Disorder of thyroid, unspecified; E11.9 Type 2 diabetes mellitus without complications; G89.29 Other chronic pain; D72.828 Other elevated white blood cell count; Z12.31 Encounter for screening mammogram for malignant neoplasm of breast; Z09 Encounter for follow-up examination after completed treatment for conditions other than malignant neoplasm; Z76.0 Encounter for issue of repeat prescription | CPT/HCPCS: 80053; 80061; 80503; 83036; 83735; 85007; 85027 ==

== ENCOUNTER 2024-09-06 09:45 | Emergency (ER) | payer SELFPAY ==
--- NOTE | 2024-09-06 09:50 | ECG_ITS ---
[facility] Test Date: 2024-09-06 Pat Name: Elysia Rodriguez Department: Room: Gender: Female V Block Saw Operator: : 1975 Requested By: Eugenio Gonzales Order Number: [id number] Rudy MD: John Ingram M.D. Measurements Intervals [place] Rate: 71 P: 59 MO: 155 QRS: 46 QRSD: 82 T: 61 QT: 376 QTc: 410 Interpretive Statements SINUS RHYTHM LOW QRS VOLTAGE IN PRECORDIAL LEADS [QRS DEFLECTION < 1.0 mV IN CHEST LEADS] Compared to ECG 12/09/2023 15:42:18 Low QRS voltage now present Sinus tachycardia no longer present Electronically Signed On 09-06-2024 17:27:01 CABLE HOOKER by John Ingram M.D. [email or web address]
[2024-09-06 09:51] VITALS: BP 142/70; PULSE 75; RESP 24; TEMP 36.9; O2SAT 100; BMI 39.5
--- NOTE | 2024-09-06 10:09 | XRR_ITS ---
PROCEDURE INFORMATION: Exam: XR Chest Exam date and time: 09/06/2024 11:23 AM Age: 49 years old Clinical indication: Cough and fever; Additional info: Fever, cough. No history of recent trauma or surgery is provided. TECHNIQUE: Imaging protocol: Radiologic exam of the chest. 1image(s) are provided. Views: 1 view. COMPARISON: CR XR chest 1V portable [id number] 12/09/2023 3:24 PM FINDINGS: Lungs: No interval lobar consolidation is appreciated. There appears to be some subtle peribronchial thickening with central, lower lung zone distribution predominance in the interval. Some processes including reactive changes as well as early peribronchial type inflammation could also present in this fashion. Pleural spaces: No pneumothorax or significant pleural effusion is appreciated. Heart/Mediastinum: The cardiomediastinal silhouette is upper normal in size.No cardiac decompensation is appreciated. Diaphragm: The hemidiaphragms are symmetric. Bones/joints: No interval displaced fracture or dislocation is appreciated. There are degenerative changes of the shoulders, acromioclavicular junction present. Soft tissues: No radiopaque foreign body or subcutaneous emphysema is appreciated. Other findings: No other significant interval changes are appreciated. XR/XR chest 1V portable [id number] IMPRESSION: There is some subtle prominence of the central bronchial markings suggestive of early peribronchial inflammation.
[2024-09-06 11:21] VITALS: BP 153/83; PULSE 73; RESP 24; O2SAT 98
--- NOTE | 2024-09-06 11:33 | ED_ITS ---
HPI - SOB/Dyspnea 2 General: Chief Complaint: Shortness of Breath/Dyspnea Stated Complaint: sob,fever,body aches Time Seen by Provider: 09/06/24 09:49 History of Present Illness: HPI Narrative: 49-year-old female presents emergency ro om with complaints of shortness of breath cough. She is currently on steroids and IV. She was previously on Zithromax and is currently on Augmentin. She does not have any chest pain does not have any hemoptysis. Associated symptoms: Deny abdominal pain, chest pain or fever(s) Related Data Home Medications Medication Instructions Recorded Confirmed amlodipine 5 mg tablet 5 mg PO DAILY 09/06/24 09/06/24 aspirin 81 mg tablet,delayed 81 mg PO DAILY 09/06/24 09/06/24 release (Ford Low Dose Aspirin) atorvastatin 40 mg tablet 40 mg PO DAILY 09/06/24 09/06/24 furosemide 40 mg tablet 40 mg PO DAILY 09/06/24 09/06/24 insulin aspart U-100 100 unit/mL See Rx Instructions .Route .COMPLEX 09/06/24 09/06/24 (3 mL) subcutaneous pen (Novolog FlexPen U-100 Insulin aspart) ipratropium 0.5 mg-albuterol 3 mg 3 ml inhalation BID 09/06/24 09/06/24 (2.5 mg base)/3 mL nebulization soln metformin 500 mg tablet 500 mg PO BID 09/06/24 09/06/24 tizanidine 4 mg tablet 4 mg PO Q6H PRN MUSCLE SPASMS 09/06/24 09/06/24 Previous Rx's Medication Instructions Recorded omeprazole 20 mg capsule,delayed 20 mg PO DAILY #90 caps 12/13/22 release albuterol sulfate 90 mcg/actuation 2 puff inhalation Q4H PRN 10/01/23 aerosol inhaler shortness of breath or wheezing #8.5 grams fluticasone propionate 115 2 inh inhalation BID #12 grams 12/08/23 mcg-salmeterol 21 mcg/actuation HFA inhaler (Advair HFA) escitalopram oxalate 20 mg tablet 20 mg PO DAILY 90 days #90 tabs 06/18/24 estradiol 1 mg tablet 1 mg PO DAILY #90 tabs 06/18/24 gabapentin 400 mg capsule 400 mg PO .every 6 hours 90 days 06/18/24 #360 caps losartan 100 See Rx Instructions .Route 06/18/24 mg-hydrochlorothiazide 12.5 mg .COMPLEX #90 tabs tablet medroxyprogesterone 2.5 mg tablet 2.5 mg PO DAILY #90 tabs 06/18/24 (Provera) metoprolol succinate 50 mg 50 mg PO DAILY #30 tabs 06/18/24 tablet,extended release 24 hr potassium chloride 20 mEq 20 meq PO DAILY #90 tabs 06/18/24 tablet,extended release(part/cryst) promethazine-DM 6.25 mg-15 mg/5 mL 5 - 10 ml PO Q6H PRN cough 10 days 08/30/24 oral syrup #473 mL amoxicillin 875 mg-potassium 1 tab PO BID #20 tabs 09/02/24 clavulanate 125 mg tablet prednisone 20 mg tablet 40 mg (2 x 20 mg) PO DAILY #10 tabs 09/02/24 albuterol sulfate 90 mcg/actuation 2 inh inhalation Q4H PRN shortness 09/06/24 aerosol inhaler of breath or wheezing #18 grams fluconazole 150 mg tablet 150 mg PO .QOD #5 tabs 09/06/24 levofloxacin 500 mg tablet 500 mg PO DAILY 7 days #7 tabs 09/06/24 methylprednisolone 4 mg tablets in See Rx Instructions PO .COMPLEX 09/06/24 a dose pack (Medrol ([place])) #21 ea Allergies Allergy/AdvReac Type Severity Reaction Status Date / Time tetracycline Allergy Intermediate ADR-Vomitin Verified 09/06/24 10:01 g Review of Systems 2 Const: Denies: fever(s) or chills Card: Denies: chest pain Resp: Reports: dyspnea, non-productive cough and wheezing GI: Denies: abdominal pain : Denies: dysuria, urinary frequency or urinary urgency Musc: Denies: neck pain or back pain Skin/Breast: Denies: rash PFSH ED 2 PFSH: Medical History Thyroid nodule greater than or equal to 1.5 cm in diameter incidentally noted on imaging study Breast cancer screening by mammogram Neutrophilia Elevated white blood cell count Type 2 diabetes mellitus Syncope and collapse Chest pain Anxiety and depression Bronchitis Peripheral neuropathy Current smoker Hyperlipidemia Sleep apnea Hypertension Asthma exacerbation in COPD Ankle sprain Fracture of 5th metatarsal Lesion of thyroid gland Lung nodule seen on imaging study Severe shoulder pain Chronic pain Social History Smoking and tobacco/nicotine status: tobacco/nicotine user, details unknown Physical Exam 2 Const: GENERAL APPEARANCE: cooperative ORIENTATION/CONSCIOUSNESS: Yes awake, Yes oriented to person, Yes oriented to place and Yes oriented to time HENMT: COMMON NORMALS: normocephalic, atraumatic and hearing grossly normal bilaterally HEAD & SCALP: normocephalic and atraumatic OTHER: White plaques on the uvula and soft palate posterior pharynx appears consistent with oral candidiasis Resp: COMMON NORMALS: normal respiratory effort, No retractions and No use of accessory muscles AUSCULTATION: rhonchi Cardio: COMMON NORMALS: regular rate, regular rhythm and No murmurs present (Cardio) RATE: regular rate RHYTHM: regular rhythm GI: COMMON NORMALS: Soft to palpation and No hepatosplenomegaly present A USCULTATION: Yes normoactive bowel sounds PALPATION: Yes Soft to palpation, No Tenderness to palpation present (GI), No Guarding due to palpation present (GI) and Yes No hepatosplenomegaly present Extremity: COMMON NORMALS: normal to inspection, capillary refill normal, no clubbing, cyanosis or edema, no calf tenderness and no pedal edema Neuro: SENSORIUM/ORIENTATION: Yes oriented to person, Yes oriented to place and Yes oriented to time Skin: COMMON NORMALS: no rashes or lesions noted GENERAL SKIN EXAM: no rashes or lesions noted Course 2 Vital Signs: Vital signs: Vital Signs Temperature 98.5 F 09/06/24 09:51 Pulse Rate 69 09/06/24 13:38 Respiratory Rate 24 H 09/06/24 12:33 Blood Pressure 126/81 09/06/24 13:38 Pulse Oximetry 97 09/06/24 13:38 Oxygen Delivery Me thod Room Air 09/06/24 12:33 MDM - SOB/Dyspnea Medical Decision Making Labs and imaging reviewed. Mild elevation white count of 13 2 he glucose is also elevated. Think this is from her steroids. Chest x-ray shows some perihilar fullness but no clear-cut pneumonia. Will switch her to Levaquin continue steroid taper monitor blood sugars closely use sliding scale insulin to adjust continue to use albuterol as needed. We did note on them exam. She has a oral candidiasis uvula and posterior pharynx we will discharge her home on Diflucan to use 150 mg every other day while on the antibiotics. Serum ketones were negative Medical Records I reviewed the patient's medical records. Lab Data I reviewed the patient's lab results. 09/06/24 11:45 09/06/24 11:45 Labs/Radiology: Radiology Impressions Chest X-Ray 09/06/24 10:09 IMPRESSION: There is some subtle prominence of the central bronchial markings suggestive of early peribronchial inflammation. Laboratory Results WBC 13.12 10^3/uL (3.29-11.43) H 09/06/24 11:45 RBC 4.29 10^6/uL (3.85-5.65) 09/06/24 11:45 Hgb 11.50 g/dL (11.27-16.99) 09/06/24 11:45 Hct 35.8 % (36-47) L 09/06/24 11:45 MCV 83.4 fl (85-98) L 09/06/24 11:45 MCH 26.8 pg (27-33) L 09/06/24 11:45 MCHC 32.1 g/dL (30-55) 09/06/24 11:45 RDW 15.1 % (12.1-15.1) 09/06/24 11:45 Plt Count 466 10^3/cmm (157-399) H 09/06/24 11:45 MPV 9.9 fL (7.4-10.4) 09/06/24 11:45 Neut % (Auto) 76.6 % 09/06/24 11:45 Lymph % (Auto) 15.1 % 09/06/24 11:45 [place] % (Auto) 6.9 % 09/06/24 11:45 Eos % (Auto) 0.0 % 09/06/24 11:45 Baso % (Auto) 0.3 % 09/06/24 11:45 Neut # (Auto) 10.05 10^3/uL (1.8-7.7) H 09/06/24 11:45 Lymph # (Auto) 2.0 10^3/uL (0.8-4.8) 09/06/24 11:45 [place] # (Auto) 0.9 10^3/uL (0.2-0.9) 09/06/24 11:45 Eos # (Auto) 0.0 10^3/uL (0.0-0.8) 09/06/24 11:45 Baso # (Auto) 0.0 10^3/uL (0.0-0.1) 09/06/24 11:45 Nucleated RBC % (auto) 0 % 09/06/24 11:45 Nucleated RBCs # 0.0 /100WBC 09/06/24 11:45 Sodium 133 mmol/L (136-145) L 09/06/24 11:45 Potassium 4.2 mmol/L (3.5-5.1) 09/06/24 11:45 Chloride 95 mmol/L (98-107) L 09/06/24 11:45 Carbon Dioxide 26 mmol/L (22-29) 09/06/24 11:45 Anion Gap 16.2 (5-19) 09/06/24 11:45 BUN 13 mg/dL (6-20) 09/06/24 11:45 Creatinine 0.6 mg/dL (0.5-0.9) 09/06/24 11:45 GFR Calculation 106.3 mL/min (90-130) 09/06/24 11:45 Glucose 322 mg/dL (65-115) H 09/06/24 11:45 Calculated Osmolality 289 mOsm/kg (285-295) 09/06/24 11:45 Lactic Acid 1.9 mmol/L (0.5-2.2) 09/06/24 11:45 Calcium 8.8 mg/dL (8.5-10.5) 09/06/24 11:45 Total Bilirubin 0.2 mg/dL (0.15-1.2) 09/06/24 11:45 AST 13 U/L (0-32) 09/06/24 11:45 ALT 28 U/L (0-33) 09/06/24 11:45 Alkaline Phosphatase 100 U/L (35-105) 09/06/24 11:45 Total Protein 6.2 g/dL (6.6-8.7) L 09/06/24 11:45 Albumin 3.6 g/dL (3.5-5.2) 09/06/24 11:45 Globulin 2.6 g/dL (1.3-4.6) 09/06/24 11:45 Urine Color Yellow (Yellow) 09/06/24 12:30 Urine Appearance Clear (CLEAR) 09/06/24 12:30 Urine pH 6.0 (5-7) 09/06/24 12:30 Ur Specific [place] 1.014 (1.005-1.030) 09/06/24 12:30 Urine Protein Negative (Negative) 09/06/24 12:30 Urine Glucose (UA) 2+ (Normal) H 09/06/24 12:30 Urine Ketones Negative (Negative) 09/06/24 12:30 Urine Blood Negative (Negative) 09/06/24 12:30 Urine Nitrate Negative (Negative) 09/06/24 12:30 Urine Bilirubin Negative (Negative) 09/06/24 12:30 Urine Urobilinogen 0.2 mg/dL (Negative) 09/06/24 12:30 Ur Leukocyte Esterase Negative (Negative) 09/06/24 12:30 Urine RBC 0-2 /hpf (0-2) 09/06/24 12:30 Urine WBC 0-5 /hpf (0-5) 09/06/24 12:30 Ur Squamous Epith Cells 0-5 /hpf (0-5) 09/06/24 12:30 Amorphous Sediment Not Reportable 09/06/24 12:30 Urine Bacteria None seen /hpf (NONE) 09/06/24 12:30 Hyaline Casts 0-4 /lpf H 09/06/24 12:30 Serum Ketones Negative (Negative) 09/06/24 11:45 Influenza Type A Ag Negative (Negative) 09/06/24 11:14 Influenza Type B Ag Negative (Negative) 09/06/24 11:14 SARS-CoV-2 Ag (Rapid) negative (Negative) 09/06/24 11:14 All radiology interpretation(s) finalized by discharge Discharge Plan Discharge Patient Disposition: Home Clinical Impression: COPD with acute exacerbation Type 2 diabetes mellitus Qualifiers: Diabetes mellitus technician terminal and repeater insulin use: without fpc use Diabetes mellitus complication status: without complication Qualified Code(s): E11.9 - Type 2 diabetes mellitus without complications Condition: Stable Prescriptions: New levofloxacin 500 mg tablet 500 mg PO DAILY 7 Days Qty: 7 0RF methylprednisolone [Medrol ([place])] 4 mg tablets,dose pack See Rx Instructions .ROUTE .COMPLEX Qty: 21 0RF Rx Instructions: orally per package directions albuterol sulfate 90 mcg/actuation HFA aerosol inhaler 2 inh INHALATION Q4H PRN (Reason: shortness of breath or wheezing) Qty: 18 0RF fluconazole 150 mg tablet 150 mg PO .QOD Qty: 5 0RF No Action fluticasone propion-salmeterol [Advair HFA] 115-21 mcg/actuation HFA aerosol inhaler 2 inh inhalation BID Qty: 12 0RF escitalopram oxalate 20 mg tablet 20 mg PO DAILY 90 Days Qty: 90 1RF estradiol 1 mg tablet 1 mg PO DAILY Qty: 90 0RF Rx Instructions: off 1 week; repeat cycle gabapentin 400 mg capsule 400 mg PO .every 6 hours 90 Days Qty: 360 1RF losartan-hydrochlorothiazide 100-12.5 mg tablet See Rx Instructions .ROUTE .COMPLEX Qty: 90 0RF Dose Instruction: Take 1 tablet by mouth once daily for 90 days Rx Instructions: Take 1 tablet by mouth once daily for 90 days metoprolol succinate 50 mg tablet extended release 24 hr 50 mg PO DAILY Qty: 30 2RF medroxyprogesterone [Provera] 2.5 mg tablet 2.5 mg PO DAILY Qty: 90 0RF potassium chloride 20 mEq tablet,ER particles/crystals 20 meq PO DAILY Qty: 90 1RF omeprazole 20 mg capsule,delayed release(DR/EC) 20 mg PO DAILY Qty: 90 1RF albuterol sulfate 90 mcg/actuation HFA aerosol inhaler 2 puff inhalation Q4H PRN (Reason: shortness of breath or wheezing) Qty: 8.5 3RF promethazine-DM 6.25-15 mg/5 mL syrup 5 - 10 ml PO Q6H PRN (Reason: cough) 10 Days Qty: 473 1RF Rx Instructions: Do not take with other antihistamines (Hydroxyzine) amoxicillin-pot clavulanate 875-125 mg tablet 1 tab PO BID Qty: 20 0RF prednisone 20 mg tablet 40 mg PO DAILY Qty: 10 0RF ipratropium-albuterol 0.5 mg-3 mg(2.5 mg base)/3 mL solution for nebulization 3 ml INHALATION BID insulin aspart U-100 [Novolog FlexPen U-100 Insulin] 100 unit/mL (3 mL) Insulin Pen See Rx Instructions .ROUTE .COMPLEX Rx Instructions: 10 unit subcutaneously per sliding scale furosemide 40 mg tablet 40 mg PO DAILY Rx Instructions: Take 1 tablet by mouth once daily atorvastatin 40 mg tablet 40 mg PO DAILY Rx Instructions: TAKE 1 TABLET BY MOUTH EVERY DAY metformin 500 mg tablet 500 mg PO BID Rx Instructions: TAKE 2 TABLETS BY MOUTH TWICE DAILY tizanidine 4 mg tablet 4 mg PO Q6H PRN (Reason: MUSCLE SPASMS) Rx Instructions: TAKE 1 TABLET BY MOUTH EVERY 6 HOURS NEEDED FOR MUSCLE SPASTICITY FOR 30 DAYS amlodipine 5 mg tablet 5 mg PO DAILY Rx Instructions: TAKE 1 TABLET BY MOUTH EVERY DAY aspirin [Ford Low Dose Aspirin] 81 mg Tablet,Delayed Release (Dr/Ec) 81 mg PO DAILY Discharge Orders: Discharge ED (Routine); Ordered 09/06/24 Ordered By: Eugenio Welch Referrals: VICKY Shah, MANAGER [employer] [Primary Care Provider] - Patient Instructions: Opioid Safety, Pain Management Coding Level of Care Code ED Machine Hose Cutter for Stanton Batista
[2024-09-06 11:39] LABS: SARS Covid-2 Antigen negative (Negative)
[2024-09-06 11:41] LABS: Influenza A by IFA Negative (Negative); Influenza B by IFA Negative (Negative)
[2024-09-06 11:55] LABS: Basophils % 0.3 %; Hematocrit 35.8 % (36-47); Lymphocytes % 15.1 %; Mean Corpuscular HGB Conc 32.1 g/dL (30-55); Mean Corpuscular Hemoglobin 26.8 pg (27-33); Mean Corpuscular Volume 83.4 fl (85-98); Mean Platelet Volume 9.9 fL (7.4-10.4); Monocytes # 0.9 10^3/uL (0.2-0.9); Monocytes % 6.9 %; Neutrophils # 10.05 10^3/uL (1.8-7.7); Neutrophils % 76.6 %; Nucleated Red Blood Cells % 0 %; Platelet Count 466 10^3/cmm (157-399); Red Blood Count 4.29 10^6/uL (3.85-5.65); Red Cell Distribution Width 15.1 % (12.1-15.1); White Blood Count 13.12 10^3/uL (3.29-11.43)
[2024-09-06 12:09] LABS: Alanine Aminotransferase 28 U/L (0-33); Albumin Level 3.6 g/dL (3.5-5.2); Alkaline Phosphatase 100 U/L (35-105); Anion Gap 16.2 (5-19); Aspartate Amino Transferase 13 U/L (0-32); Blood Urea Nitrogen 13 mg/dL (6-20); Calcium 8.8 mg/dL (8.5-10.5); Carbon Dioxide 26 mmol/L (22-29); Chloride 95 mmol/L (98-107); Globulin 2.6 g/dL (1.3-4.6); Glomerular Filtration Rate 106.3 mL/min (90-130); Glucose 322 mg/dL (65-115); Ketone (Acetest) Serum Negative (Negative); Lactic Sepsis W/Reflex 1.9 mmol/L (0.5-2.2); Osmolality Calculated 289 mOsm/kg (285-295); Potassium 4.2 mmol/L (3.5-5.1); Sodium 133 mmol/L (136-145); Total Bilirubin 0.2 mg/dL (0.15-1.2); Total Protein 6.2 g/dL (6.6-8.7)
[2024-09-06 12:18] VITALS: BP 136/76; PULSE 75; RESP 22; O2SAT 96
[2024-09-06 12:33] VITALS: BP 135/71; PULSE 72; RESP 24; O2SAT 97
[2024-09-06 12:39] LABS: Bilirubin Urine Negative (Negative); Blood Urine Negative (Negative); Glucose Urine UA 2+ (Normal); Ketones Urine Negative (Negative); Leukocyte Esterase Urine Negative (Negative); Nitrate Urine Negative (Negative); Protein Urine Negative (Negative); Specific Gravity, Urine 1.014 (1.005-1.030); Urine Appearance Clear (CLEAR); Urine Color Yellow (Yellow); Urobilinogen Urine 0.2 mg/dL (Negative)
[2024-09-06 12:44] LABS: Add Urine Microscopic? YES; Bacteria Urine None Seen /hpf; Hyaline Casts Urine 0-4 /lpf; RBC Urine 0-2 /hpf (0-2); Squamous Epithelial Cell Urine 0-5 /hpf (0-5); WBC Urine 0-5 /hpf (0-5)
--- NOTE | 2024-09-06 12:49 | PC.NURSE ---
PT is requesting to be put on oxygen, pt o2 sat on room air at this time is 98%. Will continue to monitor. Oxygen is not required at this time.
[2024-09-06 13:38] VITALS: BP 126/81; PULSE 69; O2SAT 97
== END 2024-09-06 13:40 | disposition home or self-care (01) ==
PROVIDERS: Physician Assistant; Emergency Provider Family Medicine; PCP Nurse Practitioner Family
DX: J44.1 Chronic obstructive pulmonary disease with (acute) exacerbation (principal); E11.9 Type 2 diabetes mellitus without complications
CPT/HCPCS: 36415; 71045; 80053; 81001; 82009; 83605; 85025; 87040; 87210; 87426; 87804; 93005; 99285

== ENCOUNTER → 2024-09-20 10:59 | Outpatient (BNVA) | payer SELFPAY | PROVIDERS: PCP Nurse Practitioner Family; Visit Provider Nurse Practitioner Family | DX: E11.9 Type 2 diabetes mellitus without complications (principal); D72.829 Elevated white blood cell count, unspecified; E07.9 Disorder of thyroid, unspecified; D64.9 Anemia, unspecified | CPT/HCPCS: 80053; 80061; 81003; 82306; 83036; 83550; 85025 ==